=== PATIENT | female | born 1950 | race Caucasian/White ===

== ENCOUNTER → 2018-10-01 | Outpatient (CLI) | payer MEDICARE, OTHER ==
[~2018-10-01] MED LIST: AMT10T PO; ASPI1TAB PO; CALC667C PO; ESOM20SU PO; GEMF600T3 PO; LVT.1T PO; MULT-608 PO; SIMV40TA2 PO
--- NOTE | 2018-10-01 13:42 | Diagnostic Imaging Report ---
EXAMINATION: Chest CT without contrast (lung cancer screening). HISTORY: [id number] history of smoking. FINDINGS: No comparison available. Lungs are emphysematous. There are numerous calcified granulomas in the lungs. There is mucous in the trachea. No suspicious nodules. No edema or pneumonia. No pleural effusion or pneumothorax. Heart size is normal. There are moderate coronary artery calcifications. No axillary, supraclavicular or mediastinal lymphadenopathy. Prominent but subcentimeter mediastinal lymph nodes are present. Limited views of the upper abdomen are normal. There are no suspicious osseous lesions. IMPRESSION: 1. No suspicious pulmonary nodules. LUNG-RADS CATEGORY: One. MODIFIER: None. OTHER SIGNIFICANT FINDINGS: None. Dictated by: Dictated on workstation # [id number]
== END ==
LOC: RAD 11:32
PROVIDERS: ATTEND Family Medicine
DX: Z12.2 Encounter for screening for malignant neoplasm of respiratory organs (principal); F17.210 Nicotine dependence, cigarettes, uncomplicated

== ENCOUNTER → 2020-10-07 | Outpatient (CLI) | payer MEDICARE, OTHER ==
--- NOTE | 2020-10-07 13:01 | Diagnostic Imaging Report ---
CT Lung Screening INDICATION:108 pack year smoking history, current smoker for low-dose CT screening TECHNIQUE: Noncontrast, low-dose CT imaging performed according to the lung cancer screening protocol. Auto Exposure Controls were utilize during the CT exam to meet ALARA standards for radiation dose reduction. COMPARISON:10/01/2018 FINDINGS:There are multiple densely calcified stable chronic and benign pulmonary granulomata. No noncalcified or suspicious pulmonary nodule. There were no findings of pneumonia. There is no effusion or pneumothorax. Thoracic aorta atherosclerotic but nonaneurysmal. There is no pathological appearing lymph nodes. There is no acute or suspect soft tissue or osseous chest wall pathology. The visualized upper abdomen nonacute. IMPRESSION:Stable benign findings, no evidence of lung cancer. LUNG-RADS CATEGORY:Category 1 MODIFIER:None OTHER SIGNIFICANT FINDINGS:None Dictated by: Dictated on workstation # [id number]
== END ==
LOC: RAD 11:45
PROVIDERS: ATTEND Family Medicine
DX: Z12.2 Encounter for screening for malignant neoplasm of respiratory organs (principal); F17.210 Nicotine dependence, cigarettes, uncomplicated
CPT/HCPCS: 71271

== ENCOUNTER → 2021-08-30 | Outpatient (CLI) | payer MEDICARE, OTHER ==
[~2021-08-30] VITALS: Ht 154.9 cm; Wt 43.5 kg
[~2021-08-30] MED LIST changes: +AMLO-251 PO; +ATOR80TA76 PO; +BUSP15TA60 PO; +CALC-140 PO; +ESCI10TA PO; +FAMO-144 PO; +FISH1CAP15 PO; +LEVO75CA5 PO; +PANT40TA2 PO; +UBID1CAP53 PO
== END | disposition home or self-care (01) ==
LOC: PREOP 12:41
PROVIDERS: ATTEND Surgery
DX: Z01.818 Encounter for other preprocedural examination (principal)

== ENCOUNTER 2021-08-31 13:24 | Day surgery (SDC) | payer MEDICARE, OTHER ==
[~2021-08-31] VITALS: Ht 157.5 cm; Wt 56.2 kg
[~2021-08-31 13:24] MED LIST changes: -PANT40TA2 PO
[2021-08-31] MEDS ORDERED: LACTATED RINGERS 1,000 ML IV ONE (13:32)
[2021-08-31] MEDS ORDERED: LACTATED RINGERS 1,000 ML IV STA (13:41)
[2021-08-31] MEDS ORDERED: LIDOCAINE JELLY 2% 6 ML SYRINGE MM PRN (13:45)
[2021-08-31] MEDS ORDERED: HURRICAINE EXT TUBE (BENZOCAINE) XX PRN (13:45)
[2021-08-31 13:55] VITALS: BP 134/59
--- NOTE | 2021-08-31 14:33 | Progress Note-Pre Operative ---
Pre-Operative Progress Note H&P Reviewed The H&P was reviewed, patient examined and no changes noted. Date Seen by Provider: Aug 31, 2021 Time Seen by Provider: 14:30 Date H&P Reviewed: Aug 31, 2021 Time H&P Reviewed: 14:30 Pre-Operative Diagnosis: wt loss, anemia, hematemesis DARCY ANGELES MD Aug 31, 2021 14:33
[2021-08-31] MEDS ORDERED: PANT40TA2 PO (14:34)
--- NOTE | 2021-08-31 14:34 | Discharge Inst-Surgical ---
D/C Lap Instructions-KIDO New, Converted, or Re-Newed RX: RX on Chart Follow Up Activity as tolerated High Fiber Diet 25g or more per day Avoid Alcohol, Caffeine, Spicy [place] and Acid foods. Drink 64 fluid oz or more of fluids per day. Symptoms to Report: Fever over 101 degree F, Nausea/Vomiting If any problems/questions: Contact your physician or go to Emergency Room DARCY ANGELES MD Aug 31, 2021 14:34
[2021-08-31] MEDS ORDERED: ONDANSETRON 4 MG/2 ML (SDV) Z0FRAN IVP PRN (14:45)
[2021-08-31] MEDS ORDERED: ONDANSETRON 4 MG (ZOFRAN) ORAL DISSOLVE TAB PO PRN (14:45)
[2021-08-31] MEDS ORDERED: PROPOFOL INJECTION 50 ML IV ONE (14:56)
[2021-08-31 16:20] VITALS: BP 115/50
[2021-08-31 16:25] VITALS: BP 94/44
--- NOTE | 2021-08-31 16:35 | Progress Note-Post Operative ---
Post-Operative Progess Note Surgeon (s)/Web Press Operator (s) Surgeon DARCY ANGELES MD Web Press Operator: none Pre-Operative Diagnosis wt loss, anemia, hematemesis Post-Operative Diagnosis reflux esopagitis(B), small HH(2cm), moderate gastritis with type 3 ulcer with overlying fibrin clot, pyloric stricture. chronic stage 2 ext and int hemorrhoids, moderate sigmoid diverticulosis. Procedure & Operative Findings Date of Procedure 08/31/21 Procedure Performed/Findings EGD with bx and balloon dilatation. colonoscopy. Anesthesia Type mac Estimated Blood Loss Estimated blood loss (mL): minimal Specimens/Packing Specimens Removed ge jxn, antrum DARCY ANGELES MD Aug 31, 2021 16:35
[2021-08-31 16:45] VITALS: BP 109/56
[2021-08-31 17:00] VITALS: BP 109/56
--- NOTE | 2021-08-31 17:10 | Anesthesia-General Post-Op ---
MAC Patient Condition Mental Status/LOC: Same as Preop Cardiovascular: Satisfactory Nausea/Vomiting: Absent Respiratory: Satisfactory Pain: Controlled Complications: Absent Post Op Complications Complications None Follow Up Care/Instructions Patient Instructions None needed. Anesthesiology Discharge Order Discharge Order Patient was doing well after the procedure with no complaints, stable vital signs, no apparent adverse anesthesia problems. No complications reported per nursing. AGUS STOVER 22, 2022 17:10
--- NOTE | 2021-09-01 01:42 | OPERATIVE REPORT ---
DATE OF SERVICE: 08/31/2021 ATTENDING PRIMARY CARE PHYSICIAN: Dr. Rachael Miramontes. PREOPERATIVE DIAGNOSES: Hematemesis, anemia, weight loss. POSTOPERATIVE DIAGNOSES: Reflux esophagitis, Custer grade B, small hiatal hernia 2 cm in size, prepyloric ulcer as well as a pyloric stricture, chronic stage II external and internal hemorrhoids, moderate sigmoid diverticulosis. PROCEDURE: EGD with biopsy and balloon dilatation. SURGEON: Darcy Angeles MD. ANESTHESIA: Monitored anesthesia care. ESTIMATED BLOOD LOSS: Minimal. FINDINGS: Reflux esophagitis, Custer grade B, small hiatal hernia 2 cm in size, prepyloric ulcer as well as a pyloric stricture, chronic stage II external and internal hemorrhoids, moderate sigmoid diverticulosis. DISPOSITION: The patient tolerated the procedure well. INDICATIONS: The patient is a 71-year-old female referred over to us for episodes of hematemesis. She was seen in the Emergency Department and her hemoglobin was found to be stable and she was treated medically. She does also have noticed some dark tarry stools and has noticed some weight loss. She states that her baseline weight was around 130s, however, she is currently at 94 pounds. She does have some risk factors including drinking 2 glasses of wine daily as well as a smoking 2 packs a day of cigarettes for many years. DESCRIPTION OF PROCEDURE: The patient was brought to the endoscopy suite, laid in the left lateral decubitus position. After adequate IV pain and sedative medications and monitored anesthesia care, the mouthpiece was applied. The endoscope was placed in the mouth, visualizing the pharynx and hypopharyngeal region. Vocal cords, epiglottis and vallecula identified and appeared to be normal. The endoscope was then advanced into the esophageal opening and esophagus insufflated. The endoscope was then advanced to the first, second, and third portion of esophagus at the level of the GE junction, reflux esophagitis, Custer grade B identified. No ulcers or strictures and a biopsy was taken with forceps with visualization of good hemostasis. The endoscope was then advanced into the stomach and endoscope retroflexed, visualizing a small hiatal hernia approximately 2 cm in size. There was a moderate severity gastritis. There was also a type 3 prepyloric ulcer, which was small with an overlying fibrin clot. There was also a pyloric stricture identified. The endoscope was able to go past the area of the stricture and the duodenum appeared normal with no other lesions. The balloon was then placed into the duodenum and pulled back to the area of stricture. We then proceeded in a graded stepwise fashion from 2, 4, 6 atmospheres of pressure or approximately 18 mm in luminal diameter with moderate resistance and left this in place for approximately 60 seconds. The balloon was then desufflated and removed with visualization of good hemostasis as well as no mucosal tears. A biopsy was also taken of the antrum to rule out H. pylori with visualization of good hemostasis. The endoscope was then slowly withdrawn while taking a second look and suctioning of residual air with no additional findings. A digital rectal examination was performed, which revealed chronic stage II external and internal hemorrhoids, not actively edematous nor inflamed and no bleeding. Normal sphincter tone was felt and there were no palpable masses. The endoscope was then intubated into the anus and rectum gently insufflated. The endoscope was advanced through the valves of [place] of the rectum with no polyps or any neoplasms identified. We then proceeded through the sigmoid colon where a moderate sigmoid diverticulosis was identified. The endoscope was then advanced to the remainder of the descending, transverse and ascending colon to the cecum, which were normal. There were no polyps or any neoplasms identified as well as no active bleeding sources identified. The endoscope was then slowly withdrawn while taking a second look and suctioning of residual air with no additional findings. The patient tolerated the procedure well. She will need to proceed with the necessary lifestyle and dietary accommodation including smoking as well as alcohol cessation as well as small and more frequent meals, avoidance of eating at night as well as head elevation while lying supine. She also needs to avoid caffeinated beverages, spicy, greasy and acidic foods. We will also start her on Protonix 40 mg daily. She will also need to proceed with a high fiber diet with addition of a fiber supplement, which should equal or exceed 25 grams of fiber daily as well as significant amounts of water to promote soft stools on a daily basis. If she does have recurrent issues with a dysphagia or weight loss, we will proceed with a repeat dilatation of the pyloric stricture with a larger balloon. Job ID: [id number] DocumentID: [id number] Dictated Date: 08/31/2021 16:26:20 Ferryboat Pilot Date: 09/01/2021 01:41:36 Dictated By: DARCY ANGELES MD
== END 2021-08-31 17:00 | disposition home or self-care (01) ==
LOC: ENDO 13:24
PROVIDERS: ATTEND Surgery
DX: K21.00 Gastro-esophageal reflux disease with esophagitis, without bleeding (principal); K44.9 Diaphragmatic hernia without obstruction or gangrene; K64.4 Residual hemorrhoidal skin tags; K64.1 Second degree hemorrhoids; K57.30 Diverticulosis of large intestine without perforation or abscess without bleeding; K31.1 Adult hypertrophic pyloric stenosis; F17.210 Nicotine dependence, cigarettes, uncomplicated; D64.9 Anemia, unspecified; K92.0 Hematemesis

== ENCOUNTER → 2022-01-04 | Outpatient (CLI) | payer MEDICARE, OTHER ==
[~2022-01-04] MED LIST changes: +PANT40TA2 PO
--- NOTE | 2022-01-04 17:58 | Diagnostic Imaging Report ---
EXAMINATION: CT Lung Screening. INDICATION: Screening for lung cancer, [id number] history of smoking, current smoker. TECHNIQUE: Noncontrast, low-dose CT imaging performed according to the lung cancer screening protocol. Auto Exposure Controls were utilize during the CT exam to meet ALARA standards for radiation dose reduction. COMPARISON: 10/07/2020 and 10/01/2018. FINDINGS: No pathologically enlarged lymph nodes within the chest. Moderate scattered vascular calcifications. No aneurysmal dilatation of the thoracic aorta. The heart is within normal limits in size. No pericardial effusion. No pleural effusion. Moderate background emphysematous changes. No pneumothorax. Mild scarring and/or atelectasis in the lingula. Mild scarring and/or atelectasis within the right middle lobe. Multiple calcified granuloma are again identified within the lungs bilaterally. No new suspicious pulmonary nodule or mass. Mild secretions within the trachea. The minimally visualized upper abdomen is unremarkable. No acute osseous abnormality. IMPRESSION: Stable-appearing examination demonstrating background emphysematous changes with calcified granuloma within the bilateral lungs without suspicious or actionable pulmonary nodule. LUNG-RADS CATEGORY: 2S: Benign appearance or behavior. MODIFIER: S: Background emphysematous changes. FOLLOW-UP: Continued annual low-dose CT of the chest in 12 months. Dictated by: Dictated on workstation # [id number]
== END ==
LOC: RAD 11:28
PROVIDERS: ATTEND Family Medicine
DX: Z12.2 Encounter for screening for malignant neoplasm of respiratory organs (principal); J84.10 Pulmonary fibrosis, unspecified; J43.9 Emphysema, unspecified; F17.210 Nicotine dependence, cigarettes, uncomplicated
CPT/HCPCS: 71271